=== PATIENT | male | born 1965 | race American Indian/Alaskan Native ===

== ENCOUNTER 2022-01-03 10:23 | Inpatient (IN) | payer MEDICARE ==
--- NOTE | 2022-01-03 13:40 | Cat Scan Report ---
CT head/brain wo con INDICATION / CLINICAL INFORMATION: 56 years Male; Stroke symptoms. TECHNIQUE: Routine CT head without contrast. All CT scans at this location are performed using CT dos e reduction for ALARA by means of automated exposure control. COMPARISON: None. FINDINGS: BRAIN / INTRACRANIAL CONTENTS: There are scattered areas of decreased attenuation involving cerebral white matter, including the genu of the left corpus callosum as well as the anterior right centrum se miovale. Findings are nonspecific though may reflect microvascular angiopathy. The findings are also indicative of old infarcts along the right ankle capsular region. The ventricular system is within normal limits in size and configuration. There is no clear CT eviden ce of acute intracranial hemorrhage or significant mass effect. ORBITS: There are defects involving visualized right orbital floor and medial right orbital wall like ly related to previous trauma. There is associated rounded contour to the right inferior rectus muscl e without significant displacement. SINUSES / MASTOIDS: Mild mucosal thickening within the inferior right maxillary sinus without air-flu id level. CRANIOCERVICAL JUNCTION: No significant abnormality. ADDITIONAL FINDINGS: None. IMPRESSION: 1. There is cerebral white matter disease as detailed above most consistent with microvascular angiop athy. There is no CT evidence of acute intracranial hemorrhage. 2. There are defects involving the inferior medial right orbital wall is likely related to previous t rauma as described. Signer Name: Fito Anderson MD Signed: 01/03/2022 1:36 PM Workstation Name: [id number]
[2022-01-03 13:51] LABS: Hematocrit 46.3 % (35.5-45.6); Hemoglobin 15.1 gm/dl (11.8-15.2); Mean Corpuscular HGB Conc 33 % (32-34); Mean Corpuscular Volume 91 fl (84-94); Platelet Count 292 K/mm3 (140-440); Red Blood Count 5.06 M/mm3 (3.65-5.03); Red Cell Distribution Width 14.4 % (13.2-15.2)
[2022-01-03 14:00] LABS: Partial Thromboplastin Time 38.3 Sec. (24.2-36.6); Thrombin Time 17.1 Sec. (15.1-19.6)
[2022-01-03 14:18] LABS: Creatine Kinase MB 6.4 ng/mL (0.0-4.0)
[2022-01-03 14:23] LABS: Alanine Aminotransferase 20 units/L (7-56); Albumin 4.8 g/dL (3.9-5); BUN/Creatinine Ratio 8; Blood Urea Nitrogen 9 mg/dL (9-20); Calcium 9.8 mg/dL (8.4-10.2); Hemolysis Index 5
[2022-01-03 16:55] LABS: Basophils % (Manual) 0 % (0.0-1.8); Total Cells Counted 100
[2022-01-03 16:56] LABS: Large Platelets Few; Platelet Estimate Consistent w Auto; RBC Morphology Normal
--- NOTE | 2022-01-03 18:18 | Electrocardiograph Report ---
[facility] Test Date: 2022-01-03 Test Time: 12:35:37 Pat Name: CEDRIC FOSTER Department: Room: Gender: M [employer] Operator: LISA : 1965 Requested By: ED DOC Order Number: [id number] Reading MD: Anjelica Stout Measurements Intervals [place] Rate: 60 P: 59 PA: 155 QRS: 7 QRSD: 92 T: 5 QT: 437 QTc: 436 Interpretive Statements Sinus rhythm Probable left atrial enlargement Probable left ventricular hypertrophy No previous ECG available for comparison Electronically Signed On 01-03-2022 18:17:37 EDT by Anjelica Stout
[2022-01-04] MEDS ORDERED: ASPIRIN 325 MG TAB PO ONE (02:31)
--- NOTE | 2022-01-04 02:34 | Emergency Department Report ---
HPI - General Chief Complaint: Neuro Symptoms/Deficit Time Seen by Provider: 01/04/22 02:09 - HPI HPI: Room 4 The patient is a 56-year-old male present with a chief complaint of left-sided numbness. Patient states for the past 3 days he has had tingling in his left upper and left lower extremity. Patient states he felt off balance as he walks as he noticed he was dragging his left leg. Patient denies dysarthria or dysphagia. Patient denies any preceding trauma. Patient states he has been dropping things from his left hand unintentionally. Patient states he had a CVA approximately 10 years ago and is only residual deficit is visual changes in his right eye. ED Past Medical Hx - Past Medical History Previous Medical History?: No Hx Hypertension: Yes Hx CVA: Yes (Residual right eye visual deficits) Hx Heart Attack/AMI: Yes Additional medical history: Hypercholesterolemia - Surgical History Past Surgical History?: No Additional Surgical History: Cervical spine surgery, bilateral hand surgery - Family History Family history: no significant - Social History Smoking Status: Current Some Day Smoker (1/7 pack/day) Substance Use Type: None (Denies illicit drug use), Alcohol (Beer daily) ED Review of Systems ROS: Stated complaint: BACK PAIN/OFF BALANCE/LEFT HAND TINGLING Other details as noted in HPI Constitutional: no symptoms reported Eyes: denies: eye pain ENT: denies: throat pain Respiratory: no symptoms reported Cardiovascular: denies: chest pain Endocrine: no symptoms reported Gastrointestinal: denies: abdominal pain Genitourinary: denies: dysuria Musculoskeletal: back pain Neurological: weakness, paresthesias. denies: headache Physical Exam - Physical Exam Vital Signs: Vital Signs 01/03/22 01/03/22 12:28 19:38 Temperature 98.5 F 97.9 F Pulse Rate 69 59 L Respiratory 18 16 Rate Blood Pressure 209/106 Blood Pressure 194/104 [Left] O2 Sat by Pulse 99 97 Oximetry Physical Exam: GENERAL: The patient is well-developed well-nourished male lying on stretcher not appearing to be in acute distress. [] HEENT: Normocephalic. Atraumatic. Extraocular motions are intact. Patient has moist mucous membranes. NECK: Supple. Trachea midline CHEST/LUNGS: Clear to auscultation. There is no respiratory distress noted. HEART/CARDIOVASCULAR: Regular. There is no tachycardia. There is no gallop rub or murmur. ABDOMEN: Abdomen is soft, nontender. Patient has normal bowel sounds. There is no abdominal distention. SKIN: There is no rash. There is no edema. There is no diaphoresis. NEURO: The patient is awake, alert, and oriented. The patient is cooperative. Cranial nerves II through XII grossly intact. The patient has normal speech. Patient able to hold right upper extremity at 45 degree angle for 5-second count without drift. Patient able to hold left upper extremity at 45 degree angle for 5-second count however there is some drift but it does not go to the bed. Patient able to hold right lower extremity at 30 degree angle for 5-second count without drift. Patient finds difficulty raising left lower extremity to 30 degree angle and there is drift before 5-second count but it does not go to the bed. NIHSS=2 MUSCULOSKELETAL: There is no evidence of acute injury. ED Course Vital Signs 01/03/22 01/03/22 12:28 19:38 Temperature 98.5 F 97.9 F Pulse Rate 69 59 L Respiratory 18 16 Rate Blood Pressure 209/106 Blood Pressure 194/104 [Left] O2 Sat by Pulse 99 97 Oximetry ED Medical Decision Making - Lab Data Result diagrams: 01/03/22 12:57 01/03/22 12:57 Laboratory Tests 01/03/22 01/03/22 01/03/22 12:57 12:57 12:57 WBC 4.7 RBC 5.06 H Hgb 15.1 Hct 46.3 H MCV 91 MCH 30 MCHC 33 RDW 14.4 Plt Count 292 [place] % (Auto) Pig Handler Add Manual Diff Complete Total Counted 100 Seg Neuts % (Manual) 42.0 Band Neutrophils % 0 Lymphocytes % (Manual) 36.0 H Reactive Lymphs % (Man) 0 Monocytes % (Manual) 19.0 H Eosinophils % (Manual) 3.0 Basophils % (Manual) 0 Metamyelocytes % 0 Myelocytes % 0 Promyelocytes % 0 Blast Cells % 0 Nucleated RBC % Not Reportable Seg Neutrophils # Man 2.0 Band Neutrophils # 0.0 Lymphocytes # (Manual) 1.7 Abs React Lymphs (Man) 0.0 Monocytes # (Manual) 0.9 H Eosinophils # (Manual) 0.1 Basophils # (Manual) 0.0 Metamyelocytes # 0.0 Myelocytes # 0.0 Promyelocytes # 0.0 Blast Cells # 0.0 WBC Morphology Not Reportable Hypersegmented Neuts Not Reportable Hyposegmented Neuts Not Reportable Hypogranular Neuts Not Reportable Smudge Cells Not Reportable Toxic Granulation Not Reportable Toxic Vacuolation Not Reportable Dohle Bodies Not Reportable Pelger-Huet Anomaly Not Reportable Logan Rods Not Reportable Platelet Estimate Consistent w auto Clumped Platelets Not Reportable Plt Clumps, EDTA Not Reportable Large Platelets Few Giant Platelets Not Reportable Platelet Satelliting Not Reportable Plt Morphology Comment Not Reportable RBC Morphology Normal Dimorphic RBCs Not Reportable Polychromasia Not Reportable Hypochromasia Not Reportable Poikilocytosis Not Reportable Anisocytosis Not Reportable Microcytosis Not Reportable Macrocytosis Not Reportable Spherocytes Not Reportable Pappenheimer Bodies Not Reportable Sickle Cells Not Reportable Target Cells Not Reportable Tear Drop Cells Not Reportable Ovalocytes Not Reportable Helmet Cells Not Reportable [place] Bodies Not Reportable Harvey Rings Not Reportable [place] Cells Not Reportable Bite Cells Not Reportable Crenated Cell Not Reportable Elliptocytes Not Reportable Acanthocytes (Spur) Not Reportable Rouleaux Not Reportable Hemoglobin C Crystals Not Reportable Schistocytes Not Reportable Malaria parasites Not Reportable Kiko Bodies Not Reportable Hem Pathologist Commnt No PT 14.3 INR 1.00 APTT 38.3 H Thrombin Time 17.1 Sodium 141 Potassium 4.9 Chloride 106.4 Carbon Dioxide 23 Anion Gap 17 BUN 9 Creatinine 1.1 Estimated GFR > 60 BUN/Creatinine Ratio 8 Glucose 97 Calcium 9.8 Total Bilirubin 0.40 AST 24 ALT 20 Alkaline Phosphatase 129 Total Creatine Kinase 423 H CK-MB (CK-2) 6.4 H CK-MB (CK-2) Rel Index 1.5 Troponin T < 0.010 Total Protein 7.5 Albumin 4.8 Albumin/Globulin Ratio 1.8 - EKG Data -: EKG Interpreted by Me EKG shows normal: sinus rhythm, axis Rate: normal (60 bpm) - EKG Data When compared to previous EKG there are: previous EKG unavailable Interpretation: nonspecific ST-T wave luis - Radiology Data Radiology results: report reviewed (CT head), image reviewed (CT head) [address] [address] Cat Scan Report Signed Patient: CEDRIC FOSTER MR#: [id number] : 1965 Acct:[id number] Age/Sex: 56 / M ADM Date: 01/03/22 Loc: ED Attending Dr: Ordering Physician: ANNABEL LOZANO MD Date of Service: 01/03/22 Procedure(s): CT head/brain wo con Accession Number(s): [id number] cc: ANNABEL LOZANO MD CT head/brain wo con INDICATION / CLINICAL INFORMATION: 56 years Male; Stroke symptoms. TECHNIQUE: Routine CT head without contrast. All CT scans at this location are performed using CT dose reduction for ALARA by means of automated exposure control. COMPARISON: None. FINDINGS: BRAIN / INTRACRANIAL CONTENTS: There are scattered areas of decreased attenuati on involving cerebral white matter, including the genu of the left corpus callosum as well as the anterior right centrum semiovale. Findings are nonspecific though may reflect microvascular angiopathy. The findings are also indicative of old infarcts along the right ankle capsular region. The ventricular system is within normal limits in size and configuration. There is no clear CT evidence of acute intracranial hemorrhage or significant mass effect. ORBITS: There are defects involving visualized right orbital floor and medial right orbital wall likely related to previous trauma. There is associated rounded contour to the right inferior rectus muscle without significant displacement. SINUSES / MASTOIDS: Mild mucosal thickening within the inferior right maxillary sinus without air- fluid level. CRANIOCERVICAL JUNCTION: No significant abnormality. ADDITIONAL FINDINGS: None. IMPRESSION: 1. There is cerebral white matter disease as detailed above most consistent with microvascular angiopathy. There is no CT evidence of acute intracranial hemorrhage. 2. There are defects involving the inferior medial right orbital wall is likely related to previous trauma as described. Signer Name: Fito Anderson MD Signed: 01/03/2022 1:36 PM Workstation Name: [id number] Transcribed By: MR Dictated By: Fito Anderson MD Electronically Authenticated By: Fito Anderson MD Signed Date/Time: 01/03/221335 DD/ 31 TD/TT: - Differential Diagnosis CVA, cervical radiculopathy Critical care attestation.: If time is entered above; I have spent that time in minutes in the direct care of this critically ill patient, excluding procedure time. ED Disposition Clinical Impression: Left-sided weakness Disposition: 09 ADMITTED INPATIENT Is pt being admited?: Yes Does the pt Need Aspirin: Yes Condition: Fair Time of Disposition: 02:36 (Care transferred to hospitalist (Dr. Johns))
[2022-01-04] MEDS ORDERED: MORPHINE 2 MG/1 ML INJ IV PRN ×2 (03:53)
[2022-01-04] MEDS ORDERED: ACETAMINOPHEN 325 MG TAB PO PRN ×2 (03:53)
[2022-01-04] MEDS ORDERED: METOCLOPRAMIDE 10 MG TAB PO PRN (03:53)
[2022-01-04] MEDS ORDERED: MORPHINE 4 MG/1 ML INJ IV PRN ×2 (03:53)
[2022-01-04] MEDS ORDERED: MAGNESIUM HYDROXIDE (MOM) ORAL LIQD UDC PO PRN ×2 (03:53)
[2022-01-04] MEDS ORDERED: ONDANSETRON 4 MG/2 ML INJ IV PRN ×2 (03:53)
[2022-01-04] MEDS ORDERED: PROMETHAZINE 25 MG RECT SUPP PR PRN (03:53)
--- NOTE | 2022-01-04 04:09 | History and Physical Report ---
History of Present Illness Date of examination: 01/04/22 Date of admission: 01/04/2022 Chief complaint: Left hand weakness History of present illness: 56-year-old woman history of hypertension, CVA in the past right-sided visual defect, coronary artery disease presenting to the emergency room today with complaints of left sided numbness he has had some tingling sensation in his left upper extremity extremities over the past 3 to 4 days. According to who was by the bedside, patient has been having unsteady gait and is been dragging his left leg while walking. Patient denies any chest pain or shortness of breath, no headache or dizziness and no diaphoresis. Denies any nausea or vomiting and no abdominal pain. Work-up in the emergency room today, CT scan of the head consistent with microvascular angiopathy. No CT evidence of acute intracranial hemorrhage. Labs were unremarkable except for a creatinine kinase level 423. Patient is being admitted for CVA work-up. Past History Past Medical History: acute [place], hypertension, hyperlipidemia, stroke (With right-sided residual deficit) Past Surgical History: Other ( Cervical spine surgery, bilateral hand surgery) Social history: smoking (He has not a pack of cigarette daily), alcohol abuse (Drinks a beer daily) Family history: no significant family history Medications and Allergies Allergies Allergy/AdvReac Type Severity Reaction Status Date / Time No Known Allergies Allergy Verified 01/04/22 04:10 Review of Systems Constitutional: no fever, no chills Ears, nose, mouth and throat: no nasal congestion, no sore throat Cardiovascular: no chest pain, no palpitations Respiratory: no cough, no shortness of breath Gastrointestinal: no abdominal pain, no nausea, no vomiting, no diarrhea Genitourinary Male: no dysuria, no hematuria, no flank pain Musculoskeletal: no neck pain, no low back pain Integumentary: no rash, no pruritis Neurological: weakness (Left hand weakness), no headaches, no confusion Psychiatric: no anxiety, no depression Endocrine: no polyphagia, no polydipsia, no polyuria, no nocturia Exam - Constitutional Vitals: Temp Pulse Resp BP Pulse Ox 98.0 F 58 L 20 196/99 99 01/04/22 02:54 01/04/22 04:00 01/04/22 04:00 01/04/22 04:00 01/04/22 04:00 General appearance: Present: no acute distress, well-nourished - EENT Eyes: Present: PERRL, EOM intact. Absent: scleral icterus ENT: hearing intact, clear oral mucosa, dentition normal - Neck Neck: Present: supple, normal ROM - Respiratory Respiratory effort: normal Respiratory: bilateral: CTA - Cardiovascular Rhythm: regular Heart Sounds: Present: S1 & S2. Absent: gallop, systolic murmur, diastolic murmur, rub, click - Extremities Extremities: no ischemia, pulses intact, pulses symmetrical, No edema, normal temperature, normal color, Full ROM Peripheral Pulses: within normal limits - Abdominal General gastrointestinal: Present: soft, non-tender, non-distended, normal bowel sounds. Absent: mass - Integumentary Integumentary: Present: clear, warm, dry, normal turgor. Absent: rash - Musculoskeletal Musculoskeletal: left sided weakness - Psychiatric Psychiatric: appropriate mood/affect, intact judgment & insight, memory intact, cooperative - Neurologic Neurologic: CNII-XII intact, no focal deficits, moves all extremities, other (Strength in left upper and left extremity 3/5) HEART Score - HEART Score Troponin: Troponin T < 0.010 ng/mL (0.00-0.029) 01/03/22 12:57 Results - Labs CBC & Chem 7: 01/03/22 12:57 01/03/22 12:57 Labs: Abnormal lab results 01/03/22 01/03/22 01/03/22 Range/Units 12:57 12:57 12:57 RBC 5.06 H (3.65-5.03) M/mm3 Hct 46.3 H (35.5-45.6) % Lymphocytes % (Manual) 36.0 H (13.4-35.0) % Monocytes % (Manual) 19.0 H (0.0-7.3) % Monocytes # (Manual) 0.9 H (0.0-0.8) K/mm3 APTT 38.3 H (24.2-36.6) Sec. Total Creatine Kinase 423 H (55-170) units/L CK-MB (CK-2) 6.4 H (0.0-4.0) ng/mL Assessment and Plan Assessment: 1. Left-sided weakness 2. Hypertension 3. H/O Coronary artery disease 4. Hyperlipidemia Plan: 1. Patient admitted and placed on telemetry. 2. Request neurology evaluation and recommendation 3. Patient placed on daily aspirin and statin. 4. Continue medications and monitor vital signs closely. 5. We will schedule patient for echocardiogram, carotid Doppler and MRI of the brain. 6. Schedule patient for physical therapy evaluation. DVT prophylaxis: Subcutaneous heparin CODE STATUS: Full code
[2022-01-04] MEDS ORDERED: hydrALAZINE 20 MG/1 ML INJ IV ONE (05:02)
[2022-01-04] MEDS: HEPARIN 5,000 UNIT/1 ML VIAL SUB-Q SCH ×2 (06:55→13:17)
--- NOTE | 2022-01-04 09:49 | Vascular Lab Report ---
DUPLEX DOPPLER ULTRASOUND CAROTID, BILATERAL INDICATION / CLINICAL INFORMATION: stroke. COMPARISON: None available. FINDINGS: RIGHT CAROTID: - PLAQUE ESTIMATE (%): < 50% - CCA velocity: 77.3 cm/sec. - ICA peak systolic velocity: 75.7 cm/sec. - ICA/CCA PSV Ratio: 0.98 Right Vertebral Artery: Antegrade flow. LEFT CAROTID: - PLAQUE ESTIMATE: < 50% - CCA velocity: 80.3 cm/sec. - ICA peak systolic velocity: 72.7 cm/sec. - ICA/CCA PSV Ratio: 0.91 Left Vertebral Artery: Antegrade flow. IMPRESSION: 1. Right Internal Carotid Artery: Less than 50% diameter stenosis. 2. Left Internal Carotid Artery: Less than 50% diameter stenosis. Velocity criteria are extrapolated from diameter data as defined by the Society of Radiologists in Ul trasound Consensus Conference, Radiology 2003; 229;340-346. NO STENOSIS (NORMAL) * Plaque = none; ICA PSV < 125 cm/sec; ICA/CCA PSV Ratio < 2.0 <50% STENOSIS * Plaque < 50%; ICA PSV < 125 cm/sec; ICA/CCA PSV Ratio < 2.0 50-69% STENOSIS * Plaque > 50%; ICA PSV = 125-230 cm/sec; ICA/CCA PSV Ratio = 2.0-4.0 >70% BUT <100% STENOSIS * Plaque > 50%; ICA PSV > 230 cm/sec; ICA/CCA PSV Ratio > 4.0 NEAR OCCLUSION * Plaque = visible lumen; ICA PSV = high/low/none; ICA/CCA PSV Ratio = variable TOTAL OCCLUSION * Plaque = no lumen; ICA PSV = none; ICA/CCA PSV Ratio = N/A Signer Name: Jaziel Waters MD Signed: 01/04/2022 9:44 AM Workstation Name: [id number]
--- NOTE | 2022-01-04 09:59 | Magnetic Resonance Report ---
MRI BRAIN WITHOUT CONTRAST INDICATION / CLINICAL INFORMATION: stroke, LT SIDED WEAKNESS. TECHNIQUE: Multisequence, multiplanar images were obtained. COMPARISON: CT head dated 01/03/2022 FINDINGS: CEREBRAL and CEREBELLAR HEMISPHERES: A focal area of diffusion restriction in the right michael measures 1.7 x 1.0 cm in axial plane. No other areas of diffusion restriction are identified. Mild T2 signal abnormalities are noted in the white matter consistent with chronic microangiopathy. Focal chronic in farcts are identified in the pericallosal white matter of the posterior right frontal lobe and anteri or left frontal lobe. No large chronic infarct. No midline shift. No acute hemorrhage. No extra-axia l fluid collection. VENTRICLES: Normal in size and configuration for age. VISUALIZED ORBITS: Chronic right inferior orbital wall fracture is again noted. VISUALIZED PARANASAL SINUSES: Mild mucosal thickening is noted in the right maxillary sinus. The yang ining sinuses are generally clear. ADDITIONAL FINDINGS: None. IMPRESSION: Acute to subacute ischemic infarct in the right michael as described. No evidence for hemorrhage. Chronic microvascular angiopathy in the white matter. Focal chronic infarcts as described. Signer Name: Jigar Kwok Jr, MD Signed: 01/04/2022 9:55 AM Workstation Name: [id number]
[2022-01-04] MEDS ORDERED: ASPIRIN 325 MG TAB PO SCH (10:00)
[2022-01-04 11:40] LABS: Chol/HDL Ratio 3.68 %
[2022-01-04 13:22] VITALS: BP 151/57
--- NOTE | 2022-01-04 13:29 | Discharge Summary ---
Providers - Providers Date of Admission: 01/04/22 03:53 Date of discharge: 01/04/22 Attending physician: HRAIKA CHIN MD 01/04/22 03:53 Consult to Dietitian/Nutrition [CONS] Routine Physician Instructions: Reason For Exam: Reason for Consult: Nutrition Recommendations Reason for Consult: Diet education Occupational Therapy Evaluate and Treat [CONS] Routine Comment: Reason For Exam: Neuro deficits Physical Therapy Evaluation and Treat [CONS] Routine Comment: Reason For Exam: Neuro deficits 01/04/22 03:55 Speech Therapy Evaluation and Treat [CONS] Routine Reason For Exam: swallow eval 01/04/22 07:42 Consult to Physician [CONS] Routine Comment: Consulting Provider: BLAIRE LERMA Physician Instructions: Reason For Exam: Left-sided weakness Primary care physician: STUDENT RECRUITER Hospitalization Reason for admission: CVA rule out Condition: Fair Hospital course: Patient is a 56-year-old male with a history of hypertension, CVA with residual right-sided defect and coronary artery disease who presented with left-sided numbness in left upper extremity x4 days. He was admitted for CVA rule out. CT scan of the head showed microvascular angiopathy, but no acute intracranial hemorrhage. MRI of the brain showed an acute to subacute ischemic infarct in the right michael and chronic microvascular angiopathy. Carotid Doppler showed less than 50% diameter stenosis bilaterally. Echocardiogram showed normal ejection fraction and did not demonstrate PFO. Once stable, patient was discharged home with family. Disposition: 01 HOME / SELF CARE / HOMELESS Final Discharge Diagnosis (Prints w/discharge instructions): Acute ischemic CVA. Hypertension. Coronary artery disease. Hyperlipidemia Time spent for discharge: 40 minutes Core Measure Documentation - Palliative Care Palliative Care/ Comfort Measures: Not Applicable - Core Measures Any of the following diagnoses?: stroke - Stroke Discharge Requirements Statin for LDL = or >70 mg/dl on DC: Yes Anticoag for atrial fib/atrial flutter: Not Applicable Antithrombotic for ischemic stroke: Yes Exam - Physical Exam Narrative exam: GENERAL: Well-developed well-nourished. In no acute distress. HEENT: Normocephalic. Atraumatic. NECK: Supple. CHEST/LUNGS: CTAB on room air HEART/CARDIOVASCULAR: RRR. No murmur, rubs or gallops appreciated. ABDOMEN: +BS. NT/ND. SKIN: No rashes noted. NEURO: No focal motor deficit. Follows all commands. MUSCULOSKELETAL: No joint effusion EXTREMITIES: No cyanosis, clubbing or edema. PSYCH: Cooperative. - Constitutional Vitals: Temp Pulse Resp BP Pulse Ox 98 F 58 L 18 151/57 97 01/04/22 13:22 01/04/22 13:18 01/04/22 13:18 01/04/22 13:18 01/04/22 13:18 Plan Care Plan Goals: Please follow up with your primary care provider. We are unsure of the reason for your stroke, so please have them to refer you to Neurology and Cardiology for cardiac monitoring. Please take all medications as prescribed. If you do have a blood pressure cuff, please check your blood pressures daily and record them. Bring the readings to your PCP so that they can make changes to your blood pressure medications as needed. Follow up with: PRIMARY CARE, [Primary Care Provider] - 7 Days Prescriptions: AtorvaSTATin [Lipitor] 40 mg PO QHS 90 Days #90 tablet Aspirin 325 mg PO QDAY 30 Days #30 tablet Clopidogrel [Plavix] 75 mg PO QDAY 90 Days #90 tab Other Discharge Orders: Physicial Therapy (Amb) Location: None Selected
== END 2022-01-04 16:23 | disposition home or self-care (01) | DRG 66 ==
LOC: ED 10:23 → 4A 01-04 03:53
PROVIDERS: ADMIT Internal Medicine Geriatric Medicine; ATTEND Student in an Organized Health Care Education/Training Program
DX: I63.9 Cerebral infarction, unspecified (principal); E78.00 Pure hypercholesterolemia, unspecified; I10 Essential (primary) hypertension; I69.334 Monoplegia of upper limb following cerebral infarction affecting left non-dominant side; I25.10 Atherosclerotic heart disease of native coronary artery without angina pectoris; I25.2 Old myocardial infarction; F17.200 Nicotine dependence, unspecified, uncomplicated; E78.5 Hyperlipidemia, unspecified; R29.702 NIHSS score 2
CPT/HCPCS: 36415; 70450; 70551; 80053; 80061; 82550; 82553; 82962; 83036; 84443; 84484; 85007; 85025; 85610; 85670; 85730; 93005; 93306; 93880; 99406; G0378; C8929; J0360; J1644